=== PATIENT | male | born 1975 | race African-American/Black ===

== ENCOUNTER 2021-02-08 15:55 | Emergency (ER) | payer MEDICAID ==
[~2021-02-08] VITALS: Ht 167.6 cm; Wt 88.0 kg
[2021-02-08 16:03] VITALS: BP 150/96
[2021-02-08] MEDS ORDERED: MAGNESIUM/ALUMINUM HYDROXIDE/SIMETHICONE 30ML UDC PO STA (20:57)
[2021-02-08] MEDS ORDERED: ONDANSETRON HCL 4MG/2ML INJ IV STA (20:57)
[2021-02-08] MEDS ORDERED: SODIUM CHLORIDE 0.9% 1,000 ML IV ONE (21:00)
== END 2021-02-08 21:11 | disposition left against medical advice (07) ==
LOC: ER 15:55
DX: R53.1 Weakness (principal); R11.2 Nausea with vomiting, unspecified; R51.9 Headache, unspecified
CPT/HCPCS: 93005; 99283; J7030